=== PATIENT | female | born 1965 | race Caucasian/White ===

== ENCOUNTER 2023-12-14 21:00 | Emergency (ER) | payer SELFPAY ==
[~2023-12-14] VITALS: Ht 157.5 cm; Wt 73.0 kg
[2023-12-14 21:33] VITALS: O2SAT 98
[2023-12-15] MEDS ORDERED: [UNRECOGNIZED DRUG - CODE] MM (00:27)
[2023-12-15] MEDS ORDERED: ALBU6.7H15 INH (00:27)
[2023-12-15 01:09] VITALS: BP 127/73; PULSE 80; RESP 20; TEMP 98.3
== END 2023-12-15 01:14 | disposition home or self-care (01) ==
LOC: ER 21:00
DX: R05.9 Cough, unspecified (principal); E11.9 Type 2 diabetes mellitus without complications; Z98.890 Other specified postprocedural states
CPT/HCPCS: 71045; 99283